=== PATIENT | male | born 1970 ===

== ENCOUNTER 2017-02-06 16:25 | Emergency (ER) | payer OTHER ==
[2017-02-06] MEDS ORDERED: Morphine INJ* 4 MG/ML 1 ML SYRINGE IV ONE (16:38)
[2017-02-06] MEDS ORDERED: Ketorolac INJ* 30 MG/ML 1 ML VIAL IV ONE (16:38)
[2017-02-06] MEDS ORDERED: NS 0.9% 1000 ML* 1,000 ML IV ONE ×2 (16:38→17:31)
[2017-02-06] MEDS ORDERED: Ondansetron INJ* 2 MG/ML VIAL IV ONE (16:38)
[2017-02-06] MEDS ORDERED: HYDROmorphone* 1 MG/ML 1 ML SYR IV ONE (16:51)
[2017-02-06 17:22] LABS: Hematocrit 41 % (42-52); Hemoglobin 14.2 g/dl (14.0-18.0); Mean Corpuscular HGB Conc 35 g/dl (31-36); Mean Corpuscular Hemoglobin 30 pg (27-31); Mean Corpuscular Volume 85 fL (80-94); Mean Platelet Volume 9 um3 (7.4-10.4); Red Cell Distribution Width 13 % (10.5-15); White Blood Count 12.4 10^3/ul (3.5-10.8)
[2017-02-06 17:37] LABS: ALT 20 U/L (7-52); AST 19 U/L (13-39); Albumin 4.4 g/dL (3.2-5.2); Alkaline Phosphatase 77 U/L (34-104); Anion Gap 7 mmol/L (2-11); BUN/Creatinine Ratio 12.7 (8-20); Blood Urea Nitrogen 14 mg/dL (6-24); C Reactive Protein < 1.00 mg/L (< 5.00); CO2 Carbon Dioxide 24 mmol/L (22-32); Calcium 9.7 mg/dL (8.6-10.3); Chloride 103 mmol/L (101-111); EGFR African American 93.5 (>60); EGFR Non-African American 72.7 (>60); Glucose 90 mg/dL (70-100); Potassium 3.9 mmol/L (3.5-5.0); Sodium 134 mmol/L (133-145); Total Protein 7.4 g/dL (6.4-8.9)
[2017-02-06 19:14] LABS: Urine Bacteria Absent (Absent); Urine Bilirubin Negative (Negative); Urine Glucose Negative (Negative); Urine Nitrite Negative (Negative)
--- NOTE | 2017-02-06 19:24 | ED ---
Jammie Encinas Erika, scribed for Andra Malcolm MD on 02/06/17 at 1700 . GI/ HPI - HPI Summary HPI Summary: Patient is a 46-year-old male presenting to the ED with a CC of left flank pain starting 01/31/2017. He denies trauma. Patient also reports hematuria when the pain first started, and states he vomited 1x on 02/01. Now, pain also radiates to the LLQ. Pain was not alleviated by 800 mg ibuprofen. He states he has never had similar pain before. Patient was seen at [facility] yesterday and had a CT A/P W/O contrast which revealed a 4 mm stone near the left UVJ. He denies Hx or FHx kidney stones. He denies Hx DM, HTN, hyperlipidemia. Patient does have a Hx Hepatitis C. Patient lives at [facility]. pt with good pain relief with dilaudid and toradol ok to go, - History of Current Complaint Chief Complaint: EDFlankPain Time Seen by Provider: 02/06/17 16:37 Stated Complaint: L FLANK PAIN/BLOOD IN URINE Hx Obtained From: Patient Onset/Duration: Started Days Ago, Atraumatic, Still Present Severity: Moderate Pain Intensity: 10 Location of Pain: Flank - L Pain Radiates to: LLQ Associated Signs and Symptoms: Positive: Vomiting - 1x, Hematuria, Abdominal Pain - LLQ Alleviating Factor(s): Nothing - Allergy/Home Medications Allergies/Adverse Reactions: Allergies Allergy/AdvReac Type Severity Reaction Status Date / Time No Known Allergies Allergy Verified 02/06/17 16:35 PMH/Surg Hx/FS Hx/Imm Hx Endocrine/Hematology History: Denies: Hx Diabetes Cardiovascular History: Denies: Hx Hypertension Infectious Disease History: Reports: Hx Hepatitis - C Denies: Traveled Outside the in Last 30 Days - Family History Family History: Denies FHx kidney stones - Social History Lives: Care Home - [facility] Alcohol Use: None Hx Substance Use: No Substance Use Type: Reports: None Hx Tobacco Use: No Smoking Status (MU): Never Smoked Tobacco Review of Systems Positive: Abdominal Pain - LLQ pain, Vomiting - 1x Positive: flank pain - L, hematuria All Other Systems Reviewed And Are Negative: Yes Physical Exam Triage Information Reviewed: Yes Vital Signs On Initial Exam: Initial Vitals Temp Pulse Resp BP Pulse Ox 97.4 F 75 16 154/103 100 02/06/17 16:28 02/06/17 16:28 02/06/17 16:28 02/06/17 16:28 02/06/17 16:28 Vital Signs Reviewed: Yes Appearance: Positive: Well-Appearing, Pain Distress - Moderate Skin: Positive: Warm, Skin Color Reflects Adequate Perfusion, Dry Eyes: Positive: EOMI, SHANELLE ENT: Positive: Pharynx normal, TMs normal Neck: Positive: Supple, Nontender Respiratory/Lung Sounds: Positive: Clear to Auscultation, Breath Sounds Present. Negative: Rales, Rhonchi, Wheezes Cardiovascular: Positive: RRR, Other - No gallops. Negative: Murmur, Rub Abdomen Description: Positive: Nontender, Soft, CVA Tenderness (L), Other: - No rebound. Negative: Distended, Guarding Bowel Sounds: Positive: Present Musculoskeletal: Positive: Other - MARIJA. Negative: Edema Left, Edema Right Neurological: Positive: Sensory/Motor Intact, Alert, Oriented to Person Place, Time, Other - CN II-XII intact Psychiatric: Positive: Affect/Mood Appropriate Diagnostics - Vital Signs Vital Signs Temp Pulse Resp BP Pulse Ox 02/06/17 16:28 97.4 F 75 16 154/103 100 - Laboratory Lab Results: Lab Results 02/06/17 02/06/17 02/06/17 Range/Units 17:10 17:10 18:55 WBC 12.4 H (3.5-10.8) 10^3/ul RBC 4.80 (4.0-5.4) 10^6/ul Hgb 14.2 (14.0-18.0) g/dl Hct 41 L (42-52) % MCV 85 (80-94) fL MCH 30 (27-31) pg MCHC 35 (31-36) g/dl RDW 13 (10.5-15) % Plt Count 205 (150-450) 10^3/ul MPV 9 (7.4-10.4) um3 Neut % (Auto) 73.5 (38-83) % Lymph % (Auto) 16.5 L (25-47) % [place] % (Auto) 8.4 (1-9) % Eos % (Auto) 0.8 (0-6) % Baso % (Auto) 0.8 (0-2) % Absolute Neuts (auto) 9.1 H (1.5-7.7) 10^3/ul Absolute Lymphs (auto) 2.1 (1.0-4.8) 10^3/ul Absolute Monos (auto) 1.0 H (0-0.8) 10^3/ul Absolute Eos (auto) 0.1 (0-0.6) 10^3/ul Absolute Basos (auto) 0.1 (0-0.2) 10^3/ul Absolute Nucleated RBC 0 10^3/ul Nucleated RBC % 0 Sodium 134 (133-145) mmol/L Potassium 3.9 (3.5-5.0) mmol/L Chloride 103 (101-111) mmol/L Carbon Dioxide 24 (22-32) mmol/L Anion Gap 7 (2-11) mmol/L BUN 14 (6-24) mg/dL Creatinine 1.10 (0.67-1.17) mg/dL Est GFR ( Amer) 93.5 (>60) Est GFR (Non-Af Amer) 72.7 (>60) BUN/Creatinine Ratio 12.7 (8-20) Glucose 90 (70-100) mg/dL Calcium 9.7 (8.6-10.3) mg/dL Total Bilirubin 0.50 (0.2-1.0) mg/dL AST 19 (13-39) U/L ALT 20 (7-52) U/L Alkaline Phosphatase 77 (34-104) U/L C-Reactive Protein < 1.00 (< 5.00) mg/L Total Protein 7.4 (6.4-8.9) g/dL Albumin 4.4 (3.2-5.2) g/dL Globulin 3.0 (2-4) g/dL Albumin/Globulin Ratio 1.5 (1-3) Urine Color Yellow Urine Appearance Clear Urine pH 5.0 (5-9) Ur Specific [place] 1.009 L (1.010-1.030) Urine Protein Negative (Negative) Urine Ketones Trace H (Negative) Urine Blood 1+ H (Negative) Urine Nitrate Negative (Negative) Urine Bilirubin Negative (Negative) Urine Urobilinogen Negative (Negative) Ur Leukocyte Esterase Negative (Negative) Urine WBC (Auto) Trace(0-5/hpf) (Absent) Urine RBC (Auto) Trace(0-2/hpf) (Absent) Ur Squamous Epith Cells Present H (Absent) Urine Bacteria Absent (Absent) Urine Glucose Negative (Negative) Result Diagrams: 02/06/17 17:10 02/06/17 17:10 Lab Statement: Any lab studies that have been ordered have been reviewed, and results considered in the medical decision making process. GIGU Course/Dx - Diagnoses Differential Diagnoses - Male: Ureteral Calculi Provider Diagnoses: Ureteral calculi Discharge - Discharge Plan Condition: Stable Disposition: HOME Prescriptions: Tamsulosin CAP* [Flomax CAP*] 0.4 mg PO DAILY #7 cap oxyCODONE/Acetamin 5/325 MG* [Percocet 5/325 TAB*] 1 tab PO Q4H PRN #20 tab MDD 6 PRN Reason: Pain The documentation as recorded by the Jammie velasco Erika accurately reflects the service I personally performed and the decisions made by , Andra Malcolm MD.
[2017-02-06 20:35] VITALS: BP 126/83
== END 2017-02-06 20:35 | disposition home or self-care (01) ==
LOC: ED 16:25
DX: N20.1 Calculus of ureter (principal); R31.9 Hematuria, unspecified; R11.10 Vomiting, unspecified; R10.32 Left lower quadrant pain
CPT/HCPCS: 36415; 80053; 81003; 81015; 85025; 86140; 96361; 96374; 96375; 99282; J1170; J1885; J2405